=== PATIENT | female | born 1995 | race Caucasian/White ===

== ENCOUNTER → 2018-12-20 | Outpatient (REF) | payer OTHER | LOC: M SFHCLERA 15:25 | PROVIDERS: ATTEND Physician Assistant | DX: J02.9 Acute pharyngitis, unspecified (principal) ==

== ENCOUNTER → 2019-04-25 | Outpatient (REF) | payer OTHER ==
[2019-04-25 17:22] LABS: ALT/SGPT 21 U/L (12-78); BILIRUBIN,TOTAL 0.6 MG/DL (0.2-1.0); BLOOD UREA NITROGEN 7 MG/DL (7-18); CALCIUM LEVEL 9.2 MG/DL (8.5-10.1); CARBON DIOXIDE LEVEL 25 MEQ/L (21-32); CHLORIDE LEVEL 108 MEQ/L (98-107); CREATININE FOR GFR 0.91 MG/DL (0.55-1.30); FREE T4 0.88 NG/DL (0.76-1.46); GLOMERULAR FILTRATION RATE > 60.0 (>60); GLUCOSE, FASTING 101 MG/DL (70-100); POTASSIUM SERUM 3.8 MEQ/L (3.5-5.1); SODIUM LEVEL 139 MEQ/L (136-145); TOTAL 25(OH) VITAMIN D 17.6 NG/ML (30.0-100.0); TOTAL PROTEIN 7.4 GM/DL (6.4-8.2)
[2019-04-25 17:26] LABS: HEMATOCRIT 41.1 % (36.0-47.0); HEMOGLOBIN 13.5 g/dl (12.0-15.5); MEAN CORPUSCULAR HEMOGLOBIN 29.3 pg (27.0-33.0); MEAN CORPUSCULAR HGB CONC 32.8 g/dl (32.0-36.5); MEAN CORPUSCULAR VOLUME 89.2 fl (80.0-96.0); PLATELET COUNT, AUTOMATED 285 10^3/uL (150-450); RED BLOOD COUNT 4.61 10^6/uL (4.00-5.40); WHITE BLOOD COUNT 4.9 10^3/uL (4.0-10.0)
== END ==
LOC: M LABDRAW1 15:47
PROVIDERS: ATTEND Student in an Organized Health Care Education/Training Program
DX: F41.1 Generalized anxiety disorder (principal); Z65.8 Other specified problems related to psychosocial circumstances; F43.9 Reaction to severe stress, unspecified

== ENCOUNTER 2019-06-13 11:16 | Inpatient (IN) | payer OTHER ==
[~2019-06-13] VITALS: Ht 154.9 cm; Wt 64.1 kg
[2019-06-13] MEDS ORDERED: LEXA1TAB2 PO (12:44)
[2019-06-13 12:56] LABS: HEMOGLOBIN 14.8 g/dl (12.0-15.5); MEAN CORPUSCULAR HEMOGLOBIN 29.8 pg (27.0-33.0); MEAN CORPUSCULAR HGB CONC 32.9 g/dl (32.0-36.5); MEAN CORPUSCULAR VOLUME 90.7 fl (80.0-96.0); PLATELET COUNT, AUTOMATED 282 10^3/uL (150-450); RED BLOOD COUNT 4.96 10^6/uL (4.00-5.40); WHITE BLOOD COUNT 6.3 10^3/uL (4.0-10.0)
[2019-06-13 13:17] LABS: AMPHETAMINES LEVEL URINE NEGATIVE (NEGATIVE); BARBITURATES URINE NEGATIVE (NEGATIVE); BENZODIAZEPINES URINE NEGATIVE (NEGATIVE); CANNABINOIDS URINE POSITIVE (NEGATIVE); COCAINE METABOLITE URINE NEGATIVE (NEGATIVE); METHADONE URINE NEGATIVE (NEGATIVE); OPIATES URINE NEGATIVE (NEGATIVE); PHENCYCLIDINE URINE NEGATIVE (NEGATIVE)
[2019-06-13 13:23] LABS: HCG, SERUM QUALITATIVE NEGATIVE (NEGATIVE)
[2019-06-13 13:33] LABS: ACETAMINOPHEN LEVEL < 2.0 UG/ML (10.0-30.0); ALBUMIN 4.5 GM/DL (3.2-5.2); ALT/SGPT 19 U/L (12-78); BILIRUBIN,DIRECT 0.3 MG/DL (0.0-0.2); BILIRUBIN,TOTAL 0.9 MG/DL (0.2-1.0); BLOOD UREA NITROGEN 8 MG/DL (7-18); CALCIUM LEVEL 9.8 MG/DL (8.5-10.1); CARBON DIOXIDE LEVEL 26 MEQ/L (21-32); CHLORIDE LEVEL 110 MEQ/L (98-107); CREATININE FOR GFR 0.92 MG/DL (0.55-1.30); ETHYL ALCOHOL (ETHANOL) < 0.003 % (0.000-0.010); GLOMERULAR FILTRATION RATE > 60.0 (>60); GLUCOSE, FASTING 88 MG/DL (70-100); SALICYLATE LEVEL < 1.7 MG/DL (5.0-30.0); SODIUM LEVEL 143 MEQ/L (136-145)
[2019-06-13] MEDS ORDERED: MOM 30ML SUSPENSION UDC PO PRN (14:00)
[2019-06-13] MEDS ORDERED: OLANZapine ORAL DISINTEGRATING TAB 5MG PO PRN (14:00)
[2019-06-13] MEDS: ACETAMINOPHEN TAB 650MG DOSE (2X325MG) PO PRN (20:14)
[2019-06-13] MEDS ORDERED: ESCITALOPRAM OXALATE 10 MG TAB (LEXAPRO) PO SCH (21:00)
[2019-06-14 06:35] VITALS: BP 138/87
[2019-06-14] MEDS ORDERED: INFLUENZA QUADRIVALENT PF VACCINE 0.5ML SYRINGE (90686) IM ONE (09:00)
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
[2019-06-14 16:29] VITALS: BP 109/62
[2019-06-14] MEDS: ACETAMINOPHEN TAB 650MG DOSE (2X325MG) PO PRN (19:05)
[2019-06-14] MEDS ORDERED: RAMELTEON 8 MG TAB (ROZEREM) PO SCH (21:00)
[2019-06-14] MEDS ORDERED: ARIPiprazole 2 MG TAB PO SCH (21:00)
[2019-06-14] MEDS ORDERED: ESCITALOPRAM OXALATE 10 MG TAB (LEXAPRO) PO SCH (21:00)
[2019-06-15 06:34] VITALS: BP 130/83
[2019-06-15] MEDS ORDERED: MELA3TAB41 PO (10:00)
[2019-06-15] MEDS ORDERED: ABIL1TAB13 PO (10:00)
--- NOTE | 2019-06-15 10:04 | MHDSPDOC ---
[facility] Discharge Summary Discharge Summary DATE OF ADMISSION: Jun 13, 2019 at 13:57 DATE OF DISCHARGE: 06/15/19 Discharge Dee Olivares MRN: N/A Date of : N/A Date of Service: 06/15/2019 Diagnoses Unspecified depressive disorder. MDD, mild versus adjustment disorder. Cluster B personality traits. Possible borderline versus dependent personality. Cannabis use disorder, mild. History of Present Illness The patient a 23-year-old woman presents from outpatient psychiatry where she sees Dr. Ian Polanco for medication management. She was brought in due to reported increased suicidal thinking in the context of finding on her redeployed. She reports that she becomes more depressed and hopeless when she is alone, but that she is able to cope better with her chronic passive fleeting hopelessness that appeared misconstrued as suicidal ideation when she is around others. She reports that she had tried Lexapro with positive results, but at times does have hopelessness and depressed mood and had come out of an abundance of caution. When I met with the patient, she reported that she was interested in trying Abilify which had been discussed with Dr. Polanco upon her presentation. She reports that she has multiple stressors in the form of being a dependent and finds that the local area has a lack of support that make her depression worse and is planning to return to [place] in order to be around family members. Consultants Involved Hospitalist/PCP screening Treatment and Progress On The Unit The patient was admitted to the inpatient unit, subsequently increased on her Lexapro to 25 mg, added Abilify 2 mg nightly with Remeron 8 mg added with positive effects. The patient had been denying suicidal or homicidal ideation since she presented to our unit. The patient had done well with this combination, but reportedly the Lexapro change did not take effect and thus it was discussed with the patient it would be continued at 20 mg when she had left the Abilify she reportedly well tolerated and the Remeron was helpful for her sleep and on the day of discharge the patient had requested to leave, declined further voluntary admission and did not meet involuntary admission as she denied any suicidal or homicidal ideation through her stay, had a normal mental status exam, was cooperative, and was able to participate in her discharge planning. Discharge Assessment 23-year-old woman with a history of cluster B personality traits, depression, on Lexapro augmented with low-dose Abilify does well on the inpatient unit. Further outpatient treatment will likely help stabilize her, as well as, a good psychosocial approach. Mental Status Examination General: Well dressed with good hygiene Speech: Spontaneous and fluid Thought processes: Linear and logical MSK: Smooth and coordinated gait, no signs of tremors or involuntary orofacial movements Thought content: Future orientated Abstract reasoning, and computation: Intact Description of associations: Intact Description of abnormal or psychotic thoughts: Denies any suicidal or homicidal ideation. Denies any auditory or visual hallucinations. Does not appear to be responding to internal stimuli. Does not appear to be endorsing any bizarre or paranoid ideation. Judgment: fair Insight: fair Orientation: Alert and orientated 3 Cognition: Grossly normal Recent and remote memory: Intact Attention span and concentration: Intact Fund of knowledge: Adequate Mood: "okay" Affect: Euthymic with a full range Follow Up The social work team worked during the predischarge meeting in order to evaluate for further issues of lethality address them fully before discharge. They worked on safety planning with the patient's family members in order to ensure that the patient will have a safe and effective discharge. Time Spent The amount of time spent in the coordination of care for this patient was approximately 60 minutes. Thursday Vital Signs/I&Os Vital Signs Date Time Temp Pulse Resp B/P (MAP) Pulse Ox O2 Delivery O2 Flow Rate FiO2 06/15/19 06:34 97.6 90 12 130/83 (99) Room Air 06/13/19 15:41 95 Medications Scheduled Aripiprazole (Abilify) 2 Mg Tablet, 2 MG PO QHS for mood for 7 Days, #7 Escitalopram Oxalate (Lexapro) 20 Mg Tablet, 20 MG PO QPM, (Reported) Melatonin (Melatonin) 3 Mg Tablet, 1 TAB PO QPM for sleep for 30 Days, #30 Allergies Coded Allergies: No Known Allergies (Unverified , 06/13/19) MARGARITO MARIE DO Jun 15, 2019 10:04
== END 2019-06-15 12:40 | disposition home or self-care (01) | DRG 881 ==
LOC: M ED 11:16 → M ED INP 13:57 → M PSY 16:14
PROVIDERS: ADMIT Psychiatry & Neurology Addiction Medicine; ATTEND Psychiatry & Neurology Addiction Medicine
DX: F32.9 Major depressive disorder, single episode, unspecified (principal); F60.89 Other specific personality disorders; F60.3 Borderline personality disorder; F60.7 Dependent personality disorder; F12.10 Cannabis abuse, uncomplicated; M25.511 Pain in right shoulder; F43.21 Adjustment disorder with depressed mood; Z62.810 Personal history of physical and sexual abuse in childhood; Z79.899 Other long term (current) drug therapy

== ENCOUNTER 2020-09-22 04:17 | Emergency (ER) | payer OTHER ==
[~2020-09-22] VITALS: Ht 154.9 cm; Wt 71.8 kg
[~2020-09-22 04:17] MED LIST: ABIL1TAB13 PO; LEXA1TAB2 PO; MELA3TAB30 PO
[2020-09-22] MEDS ORDERED: MONO0.25 PO (04:27)
[2020-09-22] MEDS ORDERED: ALBU8.5H INH (04:28)
[2020-09-22] MEDS ORDERED: NS 1,000 ML IV ONE (06:40)
[2020-09-22] MEDS ORDERED: ONDANSETRON 4MG/2ML VIAL IV ONE (06:40)
[2020-09-22] MEDS ORDERED: ACETAMINOPHEN 325 MG TAB PO ONE (07:05)
--- NOTE | 2020-09-22 07:30 | REPVR ---
PROCEDURE INFORMATION: Exam: XR Chest Exam date and time: 09/22/2020 6:38 AM Age: 24 years old Clinical indication: Cough; Additional info: Dyspnea/cough TECHNIQUE: Imaging protocol: XR of the chest Views: 1 view. COMPARISON: No relevant prior studies available. FINDINGS: Lungs: Interstitial and patchy/hazy ground-glass opacities within the lower lungs, consistent with infiltrates. Upper lung zones are clear. Pleural spaces: Unremarkable. No pleural effusion. No pneumothorax. Heart/Mediastinum: Unremarkable. No cardiomegaly. Bones/joints: Unremarkable. IMPRESSION: Bilateral infiltrates within the lower lungs. Findings are consistent with pneumonia. Consider COVID-19. Electronically signed by: Rajendra Oliveira On 09/22/2020 07:30:18 AM
[2020-09-22 07:41] LABS: BASO % 0.1 % (0.0-1.0); HEMATOCRIT 35.5 % (36.0-47.0); HEMOGLOBIN 11.9 g/dl (12.0-15.5); LYMPH # 0.7 10^3/uL (1.5-5.0); MEAN CORPUSCULAR HEMOGLOBIN 29.2 pg (27.0-33.0); MEAN CORPUSCULAR HGB CONC 33.5 g/dl (32.0-36.5); MEAN CORPUSCULAR VOLUME 87.2 fl (80.0-96.0); MONO # 0.3 10^3/uL (0.0-0.8); MONO % 1.4 % (2.0-8.0); NEUTROPHILS # 17.3 10^3/uL (1.5-8.5); PLATELET COUNT, AUTOMATED 422 10^3/uL (150-450); RED BLOOD COUNT 4.07 10^6/uL (4.00-5.40); WHITE BLOOD COUNT 18.4 10^3/uL (4.0-10.0)
[2020-09-22 07:59] LABS: ALBUMIN 3.2 GM/DL (3.2-5.2); ALT/SGPT 13 U/L (12-78); BILIRUBIN,DIRECT 0.4 MG/DL (0.0-0.2); BILIRUBIN,TOTAL 0.9 MG/DL (0.2-1.0); BLOOD UREA NITROGEN 7 MG/DL (7-18); CALCIUM LEVEL 9.3 MG/DL (8.5-10.1); CARBON DIOXIDE LEVEL 23 MEQ/L (21-32); CHLORIDE LEVEL 103 MEQ/L (98-107); CK-MB VALUE MASS < 1.0 NG/ML (<3.6); CPK CREATINE PHOSPHOKINASE 23 U/L (26-192); CREATININE FOR GFR 0.74 MG/DL (0.55-1.30); GLOMERULAR FILTRATION RATE > 60.0 (>60); GLUCOSE, FASTING 131 MG/DL (70-100); MB/CK RELATIVE INDEX 4.35 (< OR =4); POTASSIUM SERUM 4.1 MEQ/L (3.5-5.1); SODIUM LEVEL 135 MEQ/L (136-145); TOTAL PROTEIN 7.9 GM/DL (6.4-8.2); TROPONIN I < 0.02 NG/ML (< 0.10)
[2020-09-22 08:16] LABS: RSV AMPLIFICATION NEGATIVE (NEGATIVE)
[2020-09-22] MEDS ORDERED: DOXY100C37 PO (08:48)
[2020-09-22 09:00] VITALS: BP 132/81
[2020-09-22] MEDS ORDERED: PRED20TA PO (09:10)
--- NOTE | 2020-09-23 08:12 | ECGEPIP ---
[facility] - ED Test Date: 2020-09-22 Pat Name: HINA YUAN Department: Room: - Gender: Female Diabetes Educator: TAMMIE : 1995 Requested By: NATO Mercedes PA-C Order Number: [id number] Reading MD: Christina Rosa Measurements Intervals [place] Rate: 110 P: 63 CA: 132 QRS: 29 QRSD: 80 T: -9 QT: 318 QTc: 430 Interpretive Statements Sinus tachycardia NSTTW abnormalities No prior Electronically Signed on 09-23-2020 8:11:43 EDT by Christina Rosa
== END 2020-09-22 09:37 | disposition home or self-care (01) ==
LOC: M ED 04:17
DX: J18.9 Pneumonia, unspecified organism (principal); J45.909 Unspecified asthma, uncomplicated; E78.5 Hyperlipidemia, unspecified; Z79.3 Long term (current) use of hormonal contraceptives; F12.20 Cannabis dependence, uncomplicated
CPT/HCPCS: 71045; 80048; 80076; 82550; 82553; 84484; 85025; 87631; 93005; 96361; 96374; 99284; J2405